=== PATIENT | female | born 1935 | race Caucasian/White ===

== ENCOUNTER → 2018-11-19 | Outpatient (CLI) | payer OTHER ==
[~2018-11-19] MED LIST: CETI10 PO; FAMO20 PO; MECL12.5 PO; PRAHYD1AE TOP; PRED20 PO; PRINIVIL10 MG PO; Prinivil5 MG PO; benadryl PO
[2018-11-19 15:19] LABS: BASOPHILS ABSOLUTE AUTO 0.07 K/mm3 (0.00-0.23); BASOPHILS PERCENT AUTO 1 % (0-2); EOSINOPHILS ABSOLUTE AUTO 0.08 K/mm3 (0.00-0.68); EOSINOPHILS PERCENT AUTO 2 % (0-6); Hemoglobin 13.2 g/dL (11.5-16.0); IMMATURE GRAN ABSOLUTE AUTO 0.01 K/mm3 (0.00-0.10); IMMATURE GRAN PERCENT AUTO 0 % (0-1); LYMPHOCYTES ABSOLUTE AUTO 0.72 K/mm3 (0.84-5.20); LYMPHOCYTES PERCENT AUTO 14 % (21-46); MONOCYTES ABSOLUTE AUTO 0.46 K/mm3 (0.16-1.47); MONOCYTES PERCENT AUTO 9 % (4-13); Mean Corpuscular HGB 31.2 pg (26.0-34.0); Mean Corpuscular Volume 95 fL (80-100); NEUTROPHILS ABSOLUTE AUTO 3.72 K/mm3 (1.96-9.15); NEUTROPHILS PERCENT AUTO 74 % (41-73); Platelet Count 305 K/mm3 (150-400); RDW Coefficient Variation 12.7 % (11.7-14.2); Red Blood Cell Count 4.23 M/mm3 (3.80-5.20); White Blood Cell Count 5.06 K/mm3 (4.00-11.30)
[2018-11-19 15:37] LABS: Alanine Aminotransfer (ALT/SGP 21 U/L (12-78); Albumin, Blood 3.8 g/dL (3.4-5.0); Alk Phos 196 U/L (40-126); Anion Gap 8 mmol/L (6-16); Aspartate Aminotrans (AST/SGOT 30 U/L (12-37); Bilirubin, Total 0.5 mg/dL (0.1-1.0); Blood Urea Nitrogen 10 mg/dL (8-24); Bun/Creatinine Ratio 14.5 (12.0-20.0); CO2, Blood 30 mmol/L (21-32); Chloride, Blood 103 mmol/L (98-108); Creatinine, Blood 0.69 mg/dL (0.40-1.00); Globulin, Blood 3.7 g/dL (2.2-4.0); Glomerular Filtration Rate >60 (60-); Glucose, Blood 92 mg/dL (70-99); Potassium, Blood 4.2 mmol/L (3.5-5.5); Sodium, Blood 141 mmol/L (136-145); Thyroid Stimulating Hormone 2.439 uIU/mL (0.360-4.800); Total Protein, Blood 7.5 g/dL (6.4-8.2)
== END | disposition home or self-care (01) ==
LOC: LAB EV 15:13 → LAB SHORT 15:13
PROVIDERS: General Practice
DX: R53.81 Other malaise (principal); R35.0 Frequency of micturition
CPT/HCPCS: 80053; 84443; 85025; 87086

== ENCOUNTER 2018-11-21 18:47 | Emergency (ER) | payer OTHER ==
[~2018-11-21] VITALS: Ht 162.6 cm; Wt 45.4 kg
[~2018-11-21 18:47] MED LIST changes: -MECL12.5 PO; -PRINIVIL10 MG PO; -Prinivil5 MG PO
[2018-11-21 20:49] LABS: BASOPHILS ABSOLUTE AUTO 0.07 K/mm3 (0.00-0.23); BASOPHILS PERCENT AUTO 1 % (0-2); EOSINOPHILS ABSOLUTE AUTO 0.09 K/mm3 (0.00-0.68); EOSINOPHILS PERCENT AUTO 1 % (0-6); Hematocrit 42.5 % (33.0-51.0); Hemoglobin 13.5 g/dL (11.5-16.0); IMMATURE GRAN ABSOLUTE AUTO 0.02 K/mm3 (0.00-0.10); IMMATURE GRAN PERCENT AUTO 0 % (0-1); LYMPHOCYTES PERCENT AUTO 8 % (21-46); MONOCYTES ABSOLUTE AUTO 0.53 K/mm3 (0.16-1.47); MONOCYTES PERCENT AUTO 7 % (4-13); Mean Corpuscular HGB 30.9 pg (26.0-34.0); Mean Corpuscular HGB Conc 31.8 g/dL (31.5-36.5); Mean Corpuscular Volume 97 fL (80-100); NEUTROPHILS ABSOLUTE AUTO 5.91 K/mm3 (1.96-9.15); NEUTROPHILS PERCENT AUTO 82 % (41-73); Platelet Count 308 K/mm3 (150-400); RDW Coefficient Variation 12.7 % (11.7-14.2); RDW Standard Deviation 45.5 fL (35.1-46.3); Red Blood Cell Count 4.37 M/mm3 (3.80-5.20); White Blood Cell Count 7.22 K/mm3 (4.00-11.30)
[2018-11-21 21:11] LABS: Alanine Aminotransfer (ALT/SGP 20 U/L (12-78); Albumin, Blood 4.1 g/dL (3.4-5.0); Albumin/Globulin Ratio 1.1 (0.8-1.8); Alk Phos 194 U/L (50-136); Anion Gap 7 mmol/L (6-16); Aspartate Aminotrans (AST/SGOT 24 U/L (12-37); Bilirubin, Total 0.6 mg/dL (0.1-1.0); Blood Urea Nitrogen 10 mg/dL (8-24); Bun/Creatinine Ratio 15.3 (12.0-20.0); CO2, Blood 28 mmol/L (21-32); Calcium, Blood 9.4 mg/dL (8.5-10.1); Chloride, Blood 104 mmol/L (98-108); Creatinine, Blood 0.65 mg/dL (0.40-1.00); Globulin, Blood 3.7 g/dL (2.2-4.0); Glomerular Filtration Rate >60 (60-); Glucose, Blood 89 mg/dL (70-99); Potassium, Blood 3.7 mmol/L (3.5-5.5); Sodium, Blood 139 mmol/L (136-145); Total Protein, Blood 7.8 g/dL (6.4-8.2); Troponin I <0.015 ng/mL (0.000-0.040)
[2018-11-21] MEDS ORDERED: Prinivil5 MG PO (23:37)
== END 2018-11-22 00:05 | disposition home or self-care (01) ==
LOC: ER 18:47
PROVIDERS: Physician Assistant
DX: I10 Essential (primary) hypertension (principal); Z88.5 Allergy status to narcotic agent; Z91.041 Radiographic dye allergy status; Z88.8 Allergy status to other drugs, medicaments and biological substances; Z79.899 Other long term (current) drug therapy
CPT/HCPCS: 36415; 70450; 71046; 80053; 83880; 84484; 85025; 93005; 93010; 99284-25

== ENCOUNTER → 2018-12-26 | Outpatient (CLI) | payer OTHER ==
[~2018-12-26] MED LIST changes: +MECL12.5 PO; +PRINIVIL10 MG PO; +Prinivil5 MG PO
[2018-12-26 18:38] LABS: BASOPHILS ABSOLUTE AUTO 0.06 K/mm3 (0.00-0.23); BASOPHILS PERCENT AUTO 1 % (0-2); EOSINOPHILS ABSOLUTE AUTO 0.09 K/mm3 (0.00-0.68); EOSINOPHILS PERCENT AUTO 2 % (0-6); Hematocrit 37.3 % (33.0-51.0); Hemoglobin 12.3 g/dL (11.5-16.0); IMMATURE GRAN ABSOLUTE AUTO 0.02 K/mm3 (0.00-0.10); IMMATURE GRAN PERCENT AUTO 0 % (0-1); LYMPHOCYTES ABSOLUTE AUTO 0.55 K/mm3 (0.84-5.20); LYMPHOCYTES PERCENT AUTO 11 % (21-46); MONOCYTES ABSOLUTE AUTO 0.53 K/mm3 (0.16-1.47); MONOCYTES PERCENT AUTO 11 % (4-13); Mean Corpuscular HGB 31.1 pg (26.0-34.0); Mean Corpuscular Volume 94 fL (80-100); Mean Platelet Volume 10.2 fL (9.1-12.4); NEUTROPHILS PERCENT AUTO 75 % (41-73); Platelet Count 232 K/mm3 (150-400); RDW Standard Deviation 41.6 fL (35.1-46.3); Red Blood Cell Count 3.96 M/mm3 (3.80-5.20); White Blood Cell Count 5.05 K/mm3 (4.00-11.30)
== END | disposition home or self-care (01) ==
LOC: LAB SHORT 18:33 → LAB EV 18:33
PROVIDERS: Physician Assistant
DX: N39.0 Urinary tract infection, site not specified (principal); R42 Dizziness and giddiness
CPT/HCPCS: 85025; 87077; 87086; 87186

== ENCOUNTER 2018-12-27 22:09 | Emergency (ER) | payer OTHER ==
[~2018-12-27] VITALS: Ht 152.4 cm; Wt 36.3 kg
[~2018-12-27 22:09] MED LIST changes: -MECL12.5 PO; -PRINIVIL10 MG PO
[2018-12-27 23:47] LABS: BASOPHILS ABSOLUTE AUTO 0.05 K/mm3 (0.00-0.23); BASOPHILS PERCENT AUTO 1 % (0-2); EOSINOPHILS ABSOLUTE AUTO 0.04 K/mm3 (0.00-0.68); EOSINOPHILS PERCENT AUTO 1 % (0-6); Hematocrit 39.6 % (33.0-51.0); Hemoglobin 12.8 g/dL (11.5-16.0); IMMATURE GRAN ABSOLUTE AUTO 0.03 K/mm3 (0.00-0.10); IMMATURE GRAN PERCENT AUTO 0 % (0-1); LYMPHOCYTES ABSOLUTE AUTO 0.47 K/mm3 (0.84-5.20); LYMPHOCYTES PERCENT AUTO 6 % (21-46); MONOCYTES ABSOLUTE AUTO 0.68 K/mm3 (0.16-1.47); MONOCYTES PERCENT AUTO 9 % (4-13); Mean Corpuscular HGB 30.7 pg (26.0-34.0); Mean Corpuscular HGB Conc 32.3 g/dL (31.5-36.5); Mean Corpuscular Volume 95 fL (80-100); Mean Platelet Volume 10.5 fL (9.1-12.4); NEUTROPHILS ABSOLUTE AUTO 6.08 K/mm3 (1.96-9.15); NEUTROPHILS PERCENT AUTO 83 % (41-73); Platelet Count 250 K/mm3 (150-400); RDW Coefficient Variation 11.9 % (11.7-14.2); RDW Standard Deviation 41.5 fL (35.1-46.3); Red Blood Cell Count 4.17 M/mm3 (3.80-5.20); White Blood Cell Count 7.35 K/mm3 (4.00-11.30)
[2018-12-27 23:51] LABS: Source, Urine Clean Catch
[2018-12-27 23:54] LABS: Bilirubin, Urine Neg (Neg); Blood, Urine 2+ (Neg); Glucose Qualitative, Urine Neg (Neg); Ketones, Urine 2+ (Neg); Leukocyte Esterase, Urine Neg (Neg); Nitrite, Urine Pos (Neg); Protein, Urine Neg (Neg); Urobilinogen, Urine 1+ (Normal)
[2018-12-27 23:58] LABS: Appearance, Urine Clear (Clear); Color, Urine Amber (P-Yellow)
[2018-12-27 23:59] LABS: Bacteria Few /hpf; Red Blood Cells, Urine 0-2 /hpf (0-2); Squamous Epithelial Cells Few /hpf (Few); White Blood Cells, Urine 0-2 /hpf (0-5)
[2018-12-28 00:01] LABS: Alanine Aminotransfer (ALT/SGP 15 U/L (12-78); Albumin, Blood 3.6 g/dL (3.4-5.0); Albumin/Globulin Ratio 0.9 (0.8-1.8); Alk Phos 167 U/L (50-136); Anion Gap 10 mmol/L (6-16); Aspartate Aminotrans (AST/SGOT 20 U/L (12-37); Bilirubin, Total 0.5 mg/dL (0.1-1.0); Blood Urea Nitrogen 8 mg/dL (8-24); Bun/Creatinine Ratio 14.7 (12.0-20.0); CO2, Blood 25 mmol/L (21-32); Chloride, Blood 105 mmol/L (98-108); Creatinine, Blood 0.55 mg/dL (0.40-1.00); Globulin, Blood 4.1 g/dL (2.2-4.0); Glomerular Filtration Rate >60 (60-); Glucose, Blood 99 mg/dL (70-99); Potassium, Blood 3.7 mmol/L (3.5-5.5); Sodium, Blood 140 mmol/L (136-145); Total Protein, Blood 7.7 g/dL (6.4-8.2); Troponin I <0.015 ng/mL (0.000-0.040)
[2018-12-28] MEDS ORDERED: MECL12.5 PO (01:44)
== END 2018-12-28 02:29 | disposition home or self-care (01) ==
LOC: ER 22:09
PROVIDERS: Emergency Medicine
DX: R42 Dizziness and giddiness (principal); Z88.5 Allergy status to narcotic agent; Z88.8 Allergy status to other drugs, medicaments and biological substances; W19.XXXA Unspecified fall, initial encounter
CPT/HCPCS: 36415; 71046; 80053; 81001; 84484; 85025; 87086; 93005; 93010; 99284-25

== ENCOUNTER → 2019-01-26 | Outpatient (CLI) | payer OTHER ==
[~2019-01-26] MED LIST changes: +MECL12.5 PO; +PRINIVIL10 MG PO
== END | disposition home or self-care (01) ==
LOC: LAB SHORT 15:09 → LAB SRC 15:09 → EDSTATUS 15:11
DX: R31.9 Hematuria, unspecified (principal)
CPT/HCPCS: 87086

== ENCOUNTER 2019-02-13 18:30 | Inpatient (IN) | payer OTHER ==
[~2019-02-13] VITALS: Ht 162.6 cm; Wt 47.1 kg
[~2019-02-13 18:30] MED LIST changes: -PRINIVIL10 MG PO
[2019-02-13] MEDS ORDERED: PRINIVIL10 MG PO (20:27)
--- NOTE | 2019-02-14 00:50 | NUR ---
PT ADMITTED FROM ED FOR L FEMUR FX. PT WILL POSSIBLY NEED AN ORTHO CONSULT PER ER NOTE. PT A&O X4. BP AND HR ELEVATED. GIVEN HYDRALAZINE PER EMAR. PT MEDICATED WITH FENTANYL IN ER AND REPORTS PAIN IS TOLERABLE AT THIS TIME. WILL CTM. PT ORIENTED TO ROOM AND EDUCATED BASIC COMBATANT SWIMMER LIGHT. FLUIDS INFUSING PER EMAR.
[2019-02-14 04:53] LABS: BASOPHILS ABSOLUTE AUTO 0.05 K/mm3 (0.00-0.23); BASOPHILS PERCENT AUTO 1 % (0-2); EOSINOPHILS ABSOLUTE AUTO 0.02 K/mm3 (0.00-0.68); EOSINOPHILS PERCENT AUTO 0 % (0-6); Hematocrit 37.3 % (33.0-51.0); Hemoglobin 11.8 g/dL (11.5-16.0); IMMATURE GRAN ABSOLUTE AUTO 0.02 K/mm3 (0.00-0.10); IMMATURE GRAN PERCENT AUTO 0 % (0-1); LYMPHOCYTES ABSOLUTE AUTO 0.65 K/mm3 (0.84-5.20); LYMPHOCYTES PERCENT AUTO 8 % (21-46); MONOCYTES PERCENT AUTO 10 % (4-13); Mean Corpuscular HGB 29.4 pg (26.0-34.0); Mean Corpuscular HGB Conc 31.6 g/dL (31.5-36.5); Mean Corpuscular Volume 93 fL (80-100); Mean Platelet Volume 10.3 fL (9.1-12.4); NEUTROPHILS PERCENT AUTO 81 % (41-73); Platelet Count 195 K/mm3 (150-400); RDW Coefficient Variation 12.3 % (11.7-14.2); RDW Standard Deviation 42.5 fL (35.1-46.3); Red Blood Cell Count 4.01 M/mm3 (3.80-5.20); White Blood Cell Count 8.24 K/mm3 (4.00-11.30)
[2019-02-14 05:20] LABS: Anion Gap 7 mmol/L (6-16); Blood Urea Nitrogen 15 mg/dL (8-24); Bun/Creatinine Ratio 24.8 (12.0-20.0); CO2, Blood 26 mmol/L (21-32); Calcium, Blood 8.5 mg/dL (8.5-10.1); Chloride, Blood 108 mmol/L (98-108); Creatinine, Blood 0.61 mg/dL (0.40-1.00); Glomerular Filtration Rate >60 (60-); Glucose, Blood 100 mg/dL (70-99); Potassium, Blood 3.6 mmol/L (3.5-5.5); Sodium, Blood 141 mmol/L (136-145)
--- NOTE | 2019-02-14 06:05 | NUR ---
NEW ONSET OF TACHYCARDIA WITH HR RANGING FROM 135-140'S AT REST. SINUS TACH PER TALENT SOURCER. PT DENYING PAIN. PT ASYMPTOMATIC. ALL OTHER VS STABLE. HOSPITALIST NOTIFIED. NEW ORDER FOR ONE TIME DOSE OF METOPROLOL.
--- NOTE | 2019-02-14 17:52 | NUR ---
SHIFT SUMMARY PT HAS DONE WELL THIS SHIFT. DR LICONA IN TO SEE PATIENT, MRI DONE. PLAN TO MAKE PT NPO AT MIDNIGHT AND POSSIBLY TAKE TO OR TOMORROW DEPENDING ON MRI RESULTS. IVF RUNNING PER EMAR. MEDICATED FOR PAIN TWICE PER EMAR.
--- NOTE | 2019-02-15 04:30 | NUR ---
PATIENT WAS COMPLAINED OF PAIN IN HER LT LEG. SHE HAS BEEN NPO SINCE MIDNIGHT FOR PROBABLE SURGERY TODAY. SHE IS ON BEDREST AND HELPS TO REPOSITION SELF IN BED. AT THE BEGINING FOT THE SHIFT BOTH IV SITES WERE EITHER PULLING OUT OF INFLITRATED. NEW 18 GUAGE WAS STARTED.
--- NOTE | 2019-02-15 14:36 | NUR ---
PT ALERT, ORIENTED TO NAME, PLACE AND YEAR. AGREES WITH PLANNNED SURGERY. REPORT TO [facility].
--- NOTE | 2019-02-15 14:39 | NUR ---
DENTURES LEFT IN PT ROOM.
--- NOTE | 2019-02-15 18:04 | NUR ---
SHIFT SUMMARY/BACK FROM OR PT ARRIVED BACK FROM OR VIA BED. PT ARRIVED ON RA, PLACED ON 3L VIA NASAL CANULA R/T SATS 88-90. CURRENTLY AT 98 ON 3L. PT DENIES PAIN AND NAUSEA. CURRENTLY SLEEPING IN BED. PT ABLE TO ANSWER QUESTIONS AND FOLLOW DIRECTIONS BUT VERY SLEEPY. BANDAGES IN PLACE BULKY DRESSINGS SMALL AMOUNT OF DISCHARGE SEROUS DRAINAGE. OTHER THAN THAT CDI. IV FLUIDS INFUSING AT 50ML/HR. BED ALARM TREE FELLER LIGHT IN REACH. PT HAS LANI HOSE AND PBCS ON.
--- NOTE | 2019-02-16 07:21 | NUR ---
SHIFT SUMMARY LYING IN SEMI FOWLERS WITH EYES OPEN WITH TV ON IN ROOM. HAS BEEN CONFUSED SINCE 5;30 AM. CONTINUES TO ASK ABOUT MEDS AND BREAKFAST. DENIES PAIN, DISCOMFORT, OR FURTHER NEEDS AT THIS TIME. SAFETY MEASURES IN PLACE. WILL GIVE HAND OFF TO ONCOMING SHIFT USING SBAR.
--- NOTE | 2019-02-16 11:00 | NUR ---
CHANGE IN LOC PT CALLED FOR ASSISTANCE, WHEN STAFF ARRIVED IN THE ROOM PT APPEARED TO BE RESTING WITH HER EYES CLOSED. PT WAS AWAKENED, UPON AWAKENING PT DID NOT RESPOND TO QUESTIONS OR DIRECTIONS. PT'S EYES WERE GAZING TO THE RIGHT AND SHE WAS UNABLE TRACK WITH HER EYES. PT SLOWLY BECAME MORE RESPONSIVE, WHEN ASKED TO LIFT HER ARMS SHE COULD ONLY LIFT HER RIGHT ARM. ROSA RN AND EMILY RN NOTIFIED OF CHANGES. AFTER SEVERAL MINUTES PT WAS ALBE TO SPEAK AND MOVE UPPER AND LOWER EXTREMITIES BILATERALLY. BP STABLE 102/42, PT DID REPORT DIZZINESS. DR. MARTEL NOTIFIED OF EPISODE, WILL CONTINUE IV FLUIDS AND CONTINUE TO MONITOR PT AND NOTIFY DR. MARTEL IF PT HAS FURTHER SYMPTOMS. TELE MONITOR NOTIFIED, PER TASHI GAVIRIA, NO CHANGES REPORTED IN HEART RHYTHM. PT REMAINS DROWSY BUT RESPONDS APPROPRIATELY. WILL CONTINUE TO MONITOR.
--- NOTE | 2019-02-16 12:35 | NUR ---
SLURRED SPEECH PT IS CONTINUING TO HAVE SLURRED SPEECH. PT WAS ASSISTED WITH DENTURE ADHESIVE AND DENTURE PLACEMENT, NO IMPROVEMENT IN SPEECH QUALITY. PT APPEARS TO HAVE A LEFT SIDED FACIAL DROOP. SHE HAS GENERALIZED WEAKNESS BUT APPEARS TO BE WEAKEST IN THE L UPPER ARM. SHE IS SLOW TO RESPOND TO QUESTIONS, REQUESTS AND INSTRUCTIONS, SHE OFTEN NEEDS THINGS REPEATED. PT ALSO NOTICED TO HAVE DIFFICULTY MANAGING FOOD IN HER MOUTH DESPITE SMALL BITES AND CONSTANT SUPERVISION. PT CONTINUED TO STRUGGLE WITH MANAGING FOOD EVEN AFTER PT WAS ASSISTED WITH DENTURE ADHESIVE AND PLACING DENTURES. PT HAD NO COUGHING WHILE EATING VOICE CLEAR AFTER SWALLOWING, NO GURGLING NOTICED. PT SLIGHTLY CONFUSED REGARDING THE DATE, OTHERWISE ORIENTED. DR. MARTEL NOTIFIED OF CHANGES. AWAITING CT. FOOD REMOVED FROM ROOM, PT WILL REMAIN NPO UNTIL SHE CAN BE EVALUATED BY SPEECH THERAPY.
[2019-02-16 15:27] LABS: Source, Urine Clean Catch
[2019-02-16 15:32] LABS: Bilirubin, Urine Neg (Neg); Blood, Urine 1+ (Neg); Glucose Qualitative, Urine Neg (Neg); Ketones, Urine 4+ (Neg); Leukocyte Esterase, Urine 1+ (Neg); Nitrite, Urine Neg (Neg); Protein, Urine 2+ (Neg); Urobilinogen, Urine NORM (Normal)
[2019-02-16 15:48] LABS: Appearance, Urine Hazy (Clear); Color, Urine Yellow (P-Yellow)
[2019-02-16 16:12] LABS: Red Blood Cells, Urine 0-2 /hpf (0-2); Squamous Epithelial Cells Few /hpf (Few)
[2019-02-16 16:13] LABS: Bacteria Few /hpf
--- NOTE | 2019-02-16 17:05 | NUR ---
SHIFT SUMMARY POD 1 LEFT HIP FIXATION PATIENT HAS BEEN INTERMITTINTLY ALERT AND ORIENTED. AT TIMES DURING SHIFT PATIENT WOULD STOP USING LEFT SIDE AND SPEECH WOULD BECOME GARBLED. THE PATIENT WOULD RECOVER AND BEGIN COMMUNICATING IN COMPLETE SENTENCES AGAIN. DR. BREWER ORDERED A SERIES OF TESTS AND LABS, INCREASED FLUIDS BEGAN AND STILL AWAITNG TRANSFER TO MRI. PATIENT HAS DENIED PAIN DURING THE DAY WITH SOME COMPLAINTS OF DIZZINESS. PATIENT HAD A SPEECH EVAL WAS COUGHING AND UNABLE TO EAT ON OWN. DIET ORDERS CHANGED. PATIENT CURRENTLY RESTING IN BED. STILL DENYING PAIN.
--- NOTE | 2019-02-16 17:39 | NUR ---
PT LEFT FOR MRI VIA GURNEY.
--- NOTE | 2019-02-16 18:41 | NUR ---
information zeyad on POA and AD will return when caregiver in to assist in completing
[2019-02-17 04:19] LABS: BASOPHILS ABSOLUTE AUTO 0.03 K/mm3 (0.00-0.23); BASOPHILS PERCENT AUTO 1 % (0-2); EOSINOPHILS ABSOLUTE AUTO 0.19 K/mm3 (0.00-0.68); EOSINOPHILS PERCENT AUTO 3 % (0-6); Hematocrit 26.4 % (33.0-51.0); Hemoglobin 8.7 g/dL (11.5-16.0); IMMATURE GRAN ABSOLUTE AUTO 0.01 K/mm3 (0.00-0.10); IMMATURE GRAN PERCENT AUTO 0 % (0-1); LYMPHOCYTES ABSOLUTE AUTO 0.99 K/mm3 (0.84-5.20); LYMPHOCYTES PERCENT AUTO 16 % (21-46); MONOCYTES ABSOLUTE AUTO 0.81 K/mm3 (0.16-1.47); MONOCYTES PERCENT AUTO 13 % (4-13); Mean Corpuscular HGB 29.9 pg (26.0-34.0); Mean Corpuscular Volume 91 fL (80-100); Mean Platelet Volume 10.5 fL (9.1-12.4); NEUTROPHILS ABSOLUTE AUTO 4.13 K/mm3 (1.96-9.15); NEUTROPHILS PERCENT AUTO 67 % (41-73); Platelet Count 161 K/mm3 (150-400); RDW Coefficient Variation 13.1 % (11.7-14.2); RDW Standard Deviation 42.5 fL (35.1-46.3); Red Blood Cell Count 2.91 M/mm3 (3.80-5.20); White Blood Cell Count 6.16 K/mm3 (4.00-11.30)
[2019-02-17 04:41] LABS: Anion Gap 6 mmol/L (6-16); Blood Urea Nitrogen 15 mg/dL (8-24); Bun/Creatinine Ratio 22.5 (12.0-20.0); CO2, Blood 21 mmol/L (21-32); Calcium, Blood 7.4 mg/dL (8.5-10.1); Chloride, Blood 115 mmol/L (98-108); Creatinine, Blood 0.67 mg/dL (0.40-1.00); Glomerular Filtration Rate >60 (60-); Glucose, Blood 96 mg/dL (70-99); Potassium, Blood 3.7 mmol/L (3.5-5.5); Sodium, Blood 142 mmol/L (136-145)
--- NOTE | 2019-02-17 07:24 | NUR ---
SUMMARY PT ABLE TO REPOSITION WITH MINIMAL 1 ASSIST. VOIDING. REPORTS MINIMAL DISCOMFORT. DSNGS D/I. CICR CKS INTACT. NO NOTED EPISODES OF NEURO CHANGES. REMAINED ALERT,ORIENTED, APPROPRIATE T/O SHIFT. NO C/O CP OR SOB.
--- NOTE | 2019-02-17 09:50 | NUR ---
physical therapy by to see pt
--- NOTE | 2019-02-17 11:10 | NUR ---
speech therapy by to see pt
--- NOTE | 2019-02-17 14:25 | NUR ---
DR MARTEL BY TO SEE PT OK TO TRANSFER TO SNF
--- NOTE | 2019-02-17 17:25 | NUR ---
PT VISITING WITH HER CAREGIVER ALSO TALKED WITH HER DAUGHTER UPDATE GIVEN
--- NOTE | 2019-02-17 18:00 | NUR ---
[facility] TRANSPORT TO [facility] PT HAD SOME MILD NAUSEA WITH DINNER NO EMESIS
--- NOTE | 2019-02-17 18:20 | NUR ---
[facility]
== END 2019-02-17 18:02 | DRG 481 ==
LOC: ER 18:30 → SURS 23:58
PROVIDERS: Internal Medicine; Nurse Practitioner Acute Care; Orthopaedic Surgery; ADMIT Internal Medicine
PROC: 0QS704Z Reposition Left Upper Femur with Internal Fixation Device, Open Approach (ICD-10-PCS; principal; 2019-02-15 14:00)
DX: S72.112A Displaced fracture of greater trochanter of left femur, initial encounter for closed fracture (principal); S32.059A Unspecified fracture of fifth lumbar vertebra, initial encounter for closed fracture; W19.XXXA Unspecified fall, initial encounter; M17.0 Bilateral primary osteoarthritis of knee; M81.0 Age-related osteoporosis without current pathological fracture; R13.10 Dysphagia, unspecified; I10 Essential (primary) hypertension; K64.4 Residual hemorrhoidal skin tags; R47.81 Slurred speech; R29.6 Repeated falls; Z86.12 Personal history of poliomyelitis; Z66 Do not resuscitate
CPT/HCPCS: 36415; 70450; 70551; 72192; 73502; 73564; 73721; 80048; 81001; 85025; 87086; 92526; 92610; 93306; 93880; 94762; 96374; 96375; 97110; 97161; 97166; 97530; 99285-25; A9270-GY; C1713; C1769; J0360; J0690; J1100; J1650; J1885; J2370; J2405; J2704; J3010; J7030; J7120